=== PATIENT | male | born 1990 | race Caucasian/White ===

== ENCOUNTER → 2023-03-31 | Outpatient (REF) | payer OTHER ==
[2023-03-31 16:32] LABS: BASO # 0.1 10^3/uL (0.0-0.2); BASO % 1.1 % (0.0-1.0); EOS # 0.1 10^3/uL (0.0-0.5); EOS % 1.9 % (0.0-3.0); HEMATOCRIT 48.7 % (42.0-52.0); HEMOGLOBIN 16.2 g/dl (13.5-17.5); LYMPH # 1.7 10^3/uL (1.5-5.0); LYMPH % 31.3 % (24.0-44.0); MEAN CORPUSCULAR HEMOGLOBIN 29.4 pg (27.0-33.0); MEAN CORPUSCULAR HGB CONC 33.3 g/dl (32.0-36.5); MEAN CORPUSCULAR VOLUME 88.4 fl (80.0-96.0); MONO # 0.5 10^3/uL (0.0-0.8); MONO % 8.6 % (2.0-8.0); NEUTROPHILS # 3.1 10^3/uL (1.5-8.5); NEUTROPHILS % 56.7 % (36.0-66.0); PLATELET COUNT, AUTOMATED 218 10^3/uL (150-450); RED BLOOD COUNT 5.51 10^6/uL (4.30-6.10); WHITE BLOOD COUNT 5.4 10^3/uL (4.0-10.0)
[2023-03-31 16:44] LABS: ERYTHROCYTE SEDIMENTATION RATE 16 mm/hr (0-15)
[2023-03-31 16:58] LABS: LDH LACTATE DEHYDROGENASE 175 U/L (120-246)
[2023-03-31 17:02] LABS: ALBUMIN 4.4 G/DL (3.2-5.2); ALKALINE PHOSPHATASE 79 U/L (46-116); ALT/SGPT 102 U/L (7.0-40); AST/SGOT 36 U/L (<34); BILIRUBIN,TOTAL 0.7 MG/DL (0.3-1.2); BLOOD UREA NITROGEN 9 MG/DL (9-23); C REACTIVE PROTEIN QUANTITATIV < 0.40 MG/DL (<1.0); CALCIUM LEVEL 9.5 MG/DL (8.5-10.1); CARBON DIOXIDE LEVEL 26 MMOL/L (20-31); CHLORIDE LEVEL 104 MMOL/L (98-107); CPK CREATINE PHOSPHOKINASE 108 U/L (46-171); CREATININE FOR GFR 0.75 MG/DL (0.70-1.30); GLOMERULAR FILTRATION RATE > 60.0 (>60); GLUCOSE, FASTING 83 MG/DL (60-100); POTASSIUM SERUM 4.3 MMOL/L (3.5-5.1); SODIUM LEVEL 140 MMOL/L (136-145); TOTAL PROTEIN 7.7 G/DL (5.7-8.2)
[2023-03-31 17:03] LABS: COMPLEMENT C3 155.6 MG/DL (84.0-160.0); COMPLEMENT C4 37.2 MG/DL (12-36)
[2023-03-31 17:39] LABS: HEPATITIS C VIRUS ABY INDEX 0.14 INDEX (<0.8)
[2023-03-31 17:40] LABS: HEPATITIS B CORE ANTIBODY IGM NEGATIVE (NEGATIVE)
== END ==
LOC: M SFHCRHEU 14:12
PROVIDERS: ATTEND Internal Medicine Rheumatology
DX: R79.82 Elevated C-reactive protein (CRP) (principal); M35.3 Polymyalgia rheumatica; R21 Rash and other nonspecific skin eruption; I73.00 Raynaud's syndrome without gangrene

== ENCOUNTER 2023-07-23 12:40 | Day surgery (SDC) | payer OTHER ==
[~2023-07-23] VITALS: Ht 172.7 cm; Wt 91.3 kg
[~2023-07-23 12:40] MED LIST: AMPICILLIN SOD/SULBACTAM SOD 3 GM in D5W MINI-BAG PLUS 100 ML IV ONE
[2023-07-23] MEDS ORDERED: LR 1,000 ML IV SCH ×2 (13:05→16:15)
[2023-07-23] MEDS ORDERED: MIDAZOLAM INJ 2MG/2ML VIAL As Ordered ONE (13:08)
[2023-07-23] MEDS ORDERED: fentaNYL 100 MCG/2 ML INJECTION As Ordered ONE ×2 (13:08→15:33)
[2023-07-23] MEDS ORDERED: LIDOCAINE 2% 100MG/5ML SDV (FOR ANES.) As Ordered ONE (13:08)
[2023-07-23] MEDS ORDERED: ROCURONIUM BROMIDE 50MG/5ML VIAL As Ordered ONE (13:08)
[2023-07-23] MEDS ORDERED: propofoL 200 MG/20 ML VIAL As Ordered ONE ×2 (13:08→15:34)
[2023-07-23] MEDS ORDERED: ONDANSETRON 4MG 2ML VIAL As Ordered ONE (13:09)
[2023-07-23] MEDS ORDERED: LIDOCAINE 2% W/ EPINEPHRINE 1.7 ML DENTAL INJ As Ordered ONE (14:54)
[2023-07-23] MEDS ORDERED: OXYMETAZOLINE 0.05% NASAL SPRAY (AFRIN) As Ordered ONE (15:02)
[2023-07-23] MEDS ORDERED: ESMOLOL INJ 100MG/10ML VIAL As Ordered ONE (15:37)
[2023-07-23] MEDS ORDERED: SUGAMMADEX SODIUM 500 MG/5 ML VIAL (BRIDION) As Ordered ONE (15:44)
[2023-07-23] MEDS ORDERED: oxyCODONE 5MG TAB PO PRN (16:15)
[2023-07-23] MEDS ORDERED: ONDANSETRON 4MG 2ML VIAL IV PRN (16:15)
[2023-07-23] MEDS ORDERED: fentaNYL 100 MCG/2 ML INJECTION IV PRN (16:15)
[2023-07-23] MEDS ORDERED: METOCLOPRAMIDE INJ 10MG/2ML VIAL IV PRN (16:15)
[2023-07-23] MEDS ORDERED: HYDROMORPHONE HCL 0.5 MG/ 0.5 ML SYRINGE IV PRN (16:15)
[2023-07-23] MEDS ORDERED: LABETALOL 100MG/20ML VIAL IV PRN (16:25)
[2023-07-23 16:33] VITALS: BP 169/98
[2023-07-23 17:40] VITALS: BP 158/98; TEMP 97; O2SAT 96
== END 2023-07-23 18:07 | disposition home or self-care (01) ==
LOC: M SDC 12:40
PROVIDERS: ATTEND Dentist
DX: K02.9 Dental caries, unspecified (principal)
CPT/HCPCS: 88300; D7140; D7210; D7310; J0295; J1100; J1170; J1805; J1920; J2250; J2405; J3010